=== PATIENT | male | born 1980 | race Caucasian/White ===

== ENCOUNTER 2018-06-01 08:49 | Emergency (ER) | payer SELFPAY ==
[~2018-06-01] VITALS: Ht 188 cm; Wt 100.7 kg
[2018-06-01 08:57] VITALS: BP 163/105; TEMP 98.1
[2018-06-01] MEDS ORDERED: NORCO 325 MG-51 TAB PO (11:22)
[2018-06-01] MEDS ORDERED: PREDNISONE20 MG PO (11:22)
[2018-06-01] MEDS ORDERED: FLEXERIL 1010 MG/TAB PO (11:22)
[2018-06-01 11:38] VITALS: PULSE 93
== END 2018-06-01 11:39 | disposition home or self-care (01) ==
LOC: COL.ER 08:49
DX: M54.5 Low back pain (principal); J45.909 Unspecified asthma, uncomplicated; F17.210 Nicotine dependence, cigarettes, uncomplicated; X50.0XXA Overexertion from strenuous movement or load, initial encounter; Y99.0 Civilian activity done for income or pay
CPT/HCPCS: J1885; J2360